=== PATIENT | male | born 1950 | race African-American/Black ===

== ENCOUNTER 2020-10-22 21:44 | Inpatient (IN) | payer OTHER, MEDICARE ==
[~2020-10-22] VITALS: Ht 193 cm; Wt 129.7 kg
[2020-10-22 22:30] LABS: HEMATOCRIT. 37.1 % (42.0-52.0); HEMOGLOBIN. 11.7 g/dL (14.0-18.0); MEAN CORPUSCULAR HEMOGLOBIN 29.4 pg (28.0-32.0); MEAN CORPUSCULAR VOLUME 92.8 fL (80.0-94.0); MEAN PLATELET VOLUME 9.3 fl (7.4-10.4); PLATELET 260 x1000/uL (130-400); RED BLOOD CELL COUNT 3.99 mill/uL (4.7-6.1); RED CELL DISTRIBUTION WIDTH 17.8 % (11.6-14.6)
[2020-10-22] MEDS: DILTIAZEM HCL 5MG/ML 5ML VIAL IV PRN ×9 (22:30→23:40)
[2020-10-22 22:35] LABS: CHLORIDE 103 mEq/L (98-107)
[2020-10-22 22:49] LABS: PLATELET ESTIMATE NORMAL
[2020-10-22] MEDS ORDERED: DIGOXIN 500MCG/2ML AMP IV ONE (23:00)
[2020-10-23] MEDS ORDERED: FUROSEMIDE 40MG/4ML VIAL IVP ONE (00:45)
[2020-10-23] MEDS ORDERED: HEPARIN 25,000 UNITS PREMIX 250 ML IV STA (02:12)
[2020-10-23] MEDS ORDERED: HEPARIN 5000 UNITS/ML VIAL IV ONE (02:15)
[2020-10-23] MEDS ORDERED: ASPIRIN 81MG TABLET PO SCH (02:15)
[2020-10-23 02:40] VITALS: BP 111/73
[2020-10-23] MEDS ORDERED: DIPHENHYDRAMINE 50MG CAPSULE PO SCH (02:45)
[2020-10-23] MEDS ORDERED: IPRATROPIUM/ALBUTEROL 0.5-3(2.5)MG/3ML NEB HHN PRN ×2 (04:45→11:00)
[2020-10-23] MEDS: METOPROLOL TARTRATE 50MG TABLET PO SCH ×4 (05:30→22:09)
[2020-10-23] MEDS ORDERED: FURO-152 PO (06:01)
[2020-10-23] MEDS ORDERED: ASPI-1497 PO (06:01)
[2020-10-23] MEDS ORDERED: FAMO-135 PO (06:01)
[2020-10-23] MEDS ORDERED: METF-414 PO (06:01)
[2020-10-23] MEDS ORDERED: MELA1LIQ PO (06:01)
[2020-10-23] MEDS ORDERED: ATOR10TA69 PO (06:01)
[2020-10-23] MEDS ORDERED: ALBU05 NEB (06:01)
[2020-10-23 06:46] LABS: HEMOGLOBIN. 10.6 g/dL (14.0-18.0); MEAN CORPUSCULAR HEMOGLOBIN 29.6 pg (28.0-32.0); MEAN CORPUSCULAR VOLUME 91.6 fL (80.0-94.0); MEAN PLATELET VOLUME 9.3 fl (7.4-10.4); PLATELET 225 x1000/uL (130-400); RED CELL DISTRIBUTION WIDTH 17.8 % (11.6-14.6)
[2020-10-23 07:38] LABS: CREATINE KINASE MB FRACTION 3.7 ng/mL (0.5-3.6)
[2020-10-23 08:00] VITALS: BP 105/73
[2020-10-23] MEDS ORDERED: ENOXAPARIN 40MG/0.4ML SYR SUBCUT SCH ×2 (09:00)
[2020-10-23] MEDS ORDERED: FUROSEMIDE 20MG TABLET PO SCH (09:00)
[2020-10-23] MEDS: ASPIRIN 325MG TABLET PO SCH (09:28)
[2020-10-23] MEDS: POTASSIUM CHLORIDE 20MEQ TABLET SR PO SCH (09:28)
[2020-10-23] MEDS: FAMOTIDINE 20MG TABLET PO SCH ×2 (09:28→21:06)
[2020-10-23] MEDS ORDERED: HYDRALAZINE 20MG/ML VIAL IV PRN (11:00)
[2020-10-23] MEDS ORDERED: ACETAMINOPHEN 650MG SUPP PR PRN (11:00)
[2020-10-23] MEDS ORDERED: BISACODYL 10MG SUPP PR PRN (11:00)
[2020-10-23] MEDS ORDERED: ACETAMINOPHEN 325MG TABLET PO PRN (11:00)
[2020-10-23] MEDS ORDERED: ENOXAPARIN 80MG/0.8ML SYR SUBCUT SCH (11:15)
[2020-10-23 12:00] VITALS: BP 107/66
[2020-10-23] MEDS: DILTIAZEM HCL 30MG TABLET PO SCH ×2 (12:00→17:46)
[2020-10-23 12:27] LABS: INR 1.3; PROTHROMBIN TIME 13.4 sec (9.6-11.0)
[2020-10-23] MEDS: IPRATROPIUM/ALBUTEROL 0.5-3(2.5)MG/3ML NEB HHN SCH ×2 (14:49→21:28)
[2020-10-23] MEDS: HYDROCODONE/ACETAMINOPHEN 5/325MG TABLET PO PRN (15:00)
[2020-10-23 15:32] LABS: CREATINE KINASE MB FRACTION 3.7 ng/mL (0.5-3.6)
[2020-10-23] MEDS ORDERED: DEXTROSE 50% WATER 50ML SYRINGE IV PRN (15:45)
[2020-10-23] MEDS ORDERED: LORAZEPAM 2MG/ML CPJ IV PRN (15:45)
[2020-10-23] MEDS ORDERED: LACTULOSE 20G/30ML UDC PO PRN (15:45)
[2020-10-23] MEDS ORDERED: DIPHENHYDRAMINE 50MG/ML VIAL IV PRN (15:45)
[2020-10-23 16:00] VITALS: BP 106/53
[2020-10-23 16:23] LABS: BG BASE EXCESS -0.2 mmol/L (-2.0-2.0); BG CARBOXYHEMOGLOBIN 0.6 % (0.5-1.5); BG DEOXYHEMOGLOBIN 5.9 % (0.0-5.0); BG FRACTION INSPIRED OXYGEN 21; BG METHEMOGLOBIN 0.3 % (0.0-1.5); BG OXYHEMOGLOBIN 93.2 % (94.0-97.0); BG PH 7.462 (7.350-7.450); BG PO2 68.8 mmHg (75.0-100.0); BG SAMPLE SITE LEFT BRACHIAL; BG VENT MODE ROOM AIR
[2020-10-23] MEDS: INSULIN LISPRO 100 UNITS/ML SUBCUT SCH ×2 (17:43→21:00)
[2020-10-23] MEDS: BLOOD SUGAR DIAGNOSTIC STRIP TEST SCH ×2 (17:43→21:00)
[2020-10-23] MEDS: METHYLPREDNISOLONE SOD SUCC 40 MG/ML VIAL IV SCH (17:44)
[2020-10-23] MEDS: FUROSEMIDE 40MG/4ML VIAL IVP SCH (17:44)
[2020-10-23] MEDS: ZOLPIDEM TARTRATE 5MG TABLET PO PRN (17:45)
[2020-10-23] MEDS: PIPERACILLIN/TAZOBACTAM 2.25 G in DEXTROSE 5% WATER 50 ML IV SCH (19:02)
[2020-10-23 20:00] VITALS: BP 120/68
[2020-10-23] MEDS: ENOXAPARIN 120MG/0.8ML SYR SUBCUT SCH (21:06)
[2020-10-23] MEDS ORDERED: MIDODRINE HCL 2.5MG TABLET PO SCH (22:00)
[2020-10-23 22:17] LABS: PLATELET ESTIMATE NORMAL
[2020-10-24] VITALS: BP 112/69
[2020-10-24] MEDS: PIPERACILLIN/TAZOBACTAM 2.25 G in DEXTROSE 5% WATER 50 ML IV SCH ×4 (00:17→18:10)
[2020-10-24] MEDS: DILTIAZEM HCL 30MG TABLET PO SCH ×5 (00:17→23:54)
[2020-10-24] MEDS: IPRATROPIUM/ALBUTEROL 0.5-3(2.5)MG/3ML NEB HHN SCH ×5 (01:04→21:19)
[2020-10-24 04:00] VITALS: BP 100/66
[2020-10-24 04:16] LABS: CLARITY URINE CLEAR (CLEAR); COLOR URINE YELLOW (YELLOW); KETONES URINE NEGATIVE (NEGATIVE); LEUKOCYTE ESTERASE URINE 1+ (NEGATIVE); NITRITE URINE NEGATIVE (NEGATIVE); OCCULT BLOOD URINE NEGATIVE (NEGATIVE); PROTEIN URINE NEGATIVE (NEGATIVE)
[2020-10-24 04:25] LABS: *AMPHETAMINES SCREEN URINE NEGATIVE (NEGATIVE); *BARBITURATES SCREEN URINE NEGATIVE (NEGATIVE); *BENZODIAZEPINES SCREEN URINE NEGATIVE (NEGATIVE); *COCAINE SCREEN URINE NEGATIVE (NEGATIVE)
[2020-10-24 04:27] LABS: CANNABINOID URINE SCREEN NEGATIVE (NEGATIVE); METHADONE URINE SCREEN NEGATIVE (NEGATIVE); OPIATES URINE SCREEN PRESUMTIVE POSITIVE (NEGATIVE); PHENCYCLIDINE URINE SCREEN NEGATIVE (NEGATIVE)
[2020-10-24] MEDS: METHYLPREDNISOLONE SOD SUCC 40 MG/ML VIAL IV SCH ×2 (05:10→16:21)
[2020-10-24 06:09] LABS: INR 1.3; PROTHROMBIN TIME 13.3 sec (9.6-11.0)
[2020-10-24] MEDS: BLOOD SUGAR DIAGNOSTIC STRIP TEST SCH ×4 (06:22→20:15)
[2020-10-24 08:00] VITALS: BP 105/69
[2020-10-24] MEDS: METOPROLOL TARTRATE 50MG TABLET PO SCH ×2 (09:00→20:14)
[2020-10-24] MEDS: ENOXAPARIN 120MG/0.8ML SYR SUBCUT SCH (09:04)
[2020-10-24] MEDS: ASPIRIN 325MG TABLET PO SCH (09:05)
[2020-10-24] MEDS: FAMOTIDINE 20MG TABLET PO SCH ×2 (09:09→20:19)
[2020-10-24] MEDS: POTASSIUM CHLORIDE 20MEQ TABLET SR PO SCH (09:09)
[2020-10-24] MEDS: MIDODRINE HCL 2.5MG TABLET PO SCH ×3 (09:11→16:27)
[2020-10-24] MEDS: FUROSEMIDE 40MG/4ML VIAL IVP SCH (09:12)
[2020-10-24] MEDS: INSULIN LISPRO 100 UNITS/ML SUBCUT SCH ×4 (09:17→20:15)
[2020-10-24 11:22] LABS: BASOPHILS % 0.7 % (0.0-2.0); EOSINOPHILS % 0.5 % (0.0-5.0); HEMATOCRIT. 34.2 % (42.0-52.0); LYMPHOCYTES % 38.7 % (20.0-50.0); MEAN CORPUSCULAR HEMOGLOBIN 29.9 pg (28.0-32.0); MEAN CORPUSCULAR VOLUME 92.5 fL (80.0-94.0); MONOCYTES % 6.2 % (2.0-8.0); NEUTROPHILS % 53.9 % (40.0-76.0); PLATELET 234 x1000/uL (130-400); RED CELL DISTRIBUTION WIDTH 18.2 % (11.6-14.6)
[2020-10-24 11:23] LABS: CHLORIDE 103 mEq/L (98-107)
[2020-10-24 12:11] VITALS: BP 117/70
[2020-10-24] MEDS: HYDROCODONE/ACETAMINOPHEN 5/325MG TABLET PO PRN (13:51)
[2020-10-24 16:43] VITALS: BP 114/51
[2020-10-24 20:00] VITALS: BP 109/69
[2020-10-24] MEDS: ZOLPIDEM TARTRATE 5MG TABLET PO PRN (20:19)
[2020-10-24] MEDS: ENOXAPARIN 150MG/ML SYR SUBCUT SCH (20:19)
[2020-10-25] VITALS: BP 98/62
[2020-10-25] MEDS: IPRATROPIUM/ALBUTEROL 0.5-3(2.5)MG/3ML NEB HHN SCH ×3 (02:16→14:27)
[2020-10-25 04:00] VITALS: BP 110/63
[2020-10-25] MEDS: METHYLPREDNISOLONE SOD SUCC 40 MG/ML VIAL IV SCH ×2 (04:12→16:00)
[2020-10-25] MEDS: PIPERACILLIN/TAZOBACTAM 2.25 G in DEXTROSE 5% WATER 50 ML IV SCH ×4 (05:01→17:21)
[2020-10-25] MEDS: DILTIAZEM HCL 30MG TABLET PO SCH ×3 (05:01→17:22)
[2020-10-25] MEDS: BLOOD SUGAR DIAGNOSTIC STRIP TEST SCH ×3 (06:31→17:20)
[2020-10-25 06:39] LABS: BASOPHILS % 0.1 % (0.0-2.0); HEMATOCRIT. 35.5 % (42.0-52.0); HEMOGLOBIN. 11.1 g/dL (14.0-18.0); LYMPHOCYTES % 18.7 % (20.0-50.0); MEAN CORPUSCULAR HEMOGLOBIN 28.6 pg (28.0-32.0); MEAN CORPUSCULAR VOLUME 91.5 fL (80.0-94.0); MEAN PLATELET VOLUME 9.8 fl (7.4-10.4); MONOCYTES % 5.1 % (2.0-8.0); NEUTROPHILS % 76.1 % (40.0-76.0); PLATELET 237 x1000/uL (130-400); RED BLOOD CELL COUNT 3.88 mill/uL (4.7-6.1); RED CELL DISTRIBUTION WIDTH 18.1 % (11.6-14.6)
[2020-10-25] MEDS: INSULIN LISPRO 100 UNITS/ML SUBCUT SCH ×3 (07:50→17:21)
[2020-10-25] MEDS: METOPROLOL TARTRATE 50MG TABLET PO SCH (09:00)
[2020-10-25] MEDS: FAMOTIDINE 20MG TABLET PO SCH (09:24)
[2020-10-25] MEDS: MIDODRINE HCL 2.5MG TABLET PO SCH ×3 (09:24→16:37)
[2020-10-25] MEDS: ASPIRIN 325MG TABLET PO SCH (09:24)
[2020-10-25] MEDS: POTASSIUM CHLORIDE 20MEQ TABLET SR PO SCH (09:24)
[2020-10-25] MEDS: ENOXAPARIN 150MG/ML SYR SUBCUT SCH (09:25)
[2020-10-25] MEDS: FUROSEMIDE 40MG/4ML VIAL IVP SCH (09:36)
[2020-10-25] MEDS ORDERED: APIXABAN 5 MG TABLET PO SCH (17:00)
== END 2020-10-25 17:58 | disposition home health service (06) | DRG 308 ==
LOC: ER 21:44 → 6WST 10-23 00:32 → EDBEDREQ 10-23 00:54 → ENRESERV 10-23 02:02
PROVIDERS: ADMIT Internal Medicine; ATTEND Internal Medicine
DX: I48.91 Unspecified atrial fibrillation (principal); I50.23 Acute on chronic systolic (congestive) heart failure; J44.1 Chronic obstructive pulmonary disease with (acute) exacerbation; I13.0 Hypertensive heart and chronic kidney disease with heart failure and stage 1 through stage 4 chronic kidney disease, or unspecified chronic kidney disease; N17.9 Acute kidney failure, unspecified; C95.90 Leukemia, unspecified not having achieved remission; I42.9 Cardiomyopathy, unspecified; D64.9 Anemia, unspecified; E11.22 Type 2 diabetes mellitus with diabetic chronic kidney disease; E11.65 Type 2 diabetes mellitus with hyperglycemia; E66.01 Morbid (severe) obesity due to excess calories; E78.5 Hyperlipidemia, unspecified; E87.6 Hypokalemia; I25.10 Atherosclerotic heart disease of native coronary artery without angina pectoris; N18.9 Chronic kidney disease, unspecified; R74.01 Elevation of levels of liver transaminase levels; R79.89 Other specified abnormal findings of blood chemistry; I08.2 Rheumatic disorders of both aortic and tricuspid valves; F17.210 Nicotine dependence, cigarettes, uncomplicated; Z79.899 Other long term (current) drug therapy; Z79.82 Long term (current) use of aspirin; Z68.34 Body mass index [BMI] 34.0-34.9, adult; R06.03 Acute respiratory distress
CPT/HCPCS: 36415; 36600; 71045; 78582; 80048; 80053; 80061; 80076; 80305; 81003; 82375; 82550; 82553; 82805; 82962; 83036; 83880; 84443; 84484; 85025; 93005; 93306; 93880; 93970; 94640; 97162; 99291; A9558; J1160; J1650; J1815; J1940; J2543; J2920; J3490; J7040; J7060